=== PATIENT | female | born 1985 | race Hispanic/Latino ===

== ENCOUNTER 2020-07-07 11:59 | Emergency (ER) | payer SELFPAY ==
--- NOTE | 2020-07-07 12:05 | Event Note ---
ED Screening Note ED Screening Note: saw pcp about 10 days ago for uri given azithro cough persistent covid neg no fever or chills no sob no cp smoker no hx asthma non ill appearing This initial assessment/diagnostic orders/clinical plan/treatment(s) is/are subject to change based on patients health status, clinical progression and re-assessment by fellow clinical providers in the ED. Further treatment and workup at subsequent clinical providers discretion. Patient/guardian urged not to elope from the ED as their condition may be serious if not clinically assessed and managed. Initial orders include: xr ro pna
[2020-07-07 12:08] VITALS: BP 149/103
--- NOTE | 2020-07-07 12:29 | Emergency Department Report ---
Minor Respiratory - HPI Chief Complaint: Upper Respiratory Infection Stated Complaint: CONGESTION Time Seen by Provider: 07/07/20 12:03 Pain Location: Facial, Throat, Chest Severity: mild Minor Respiratory: Yes Sore Throat, Yes Able to Tolerate Fluids, Yes Cough, No Rhinorrhea, No Ear Pain, No Sick Contacts, No Hemoptysis, No Chest Pain, No Shortness of Breath, No Fever Other History: 35 yo comes to er with cough, sinus pain and sore throat. No exudate. No fever or chills. Pt denes chest pain or sob. Denies known exposure to covid. Pt denies hx htn. She has seen her PCP for the same over the past few weeks but it is not getting better p tenzin dent. She was given no steroids at the time. Pt continues to smoke daily - she has been educated on cessation. Ambulatory and non ill appearing on exam. ED Review of Systems ROS: Stated complaint: CONGESTION Other details as noted in HPI Comment: All other systems reviewed and negative ED Past Medical Hx - Past Medical History Previous Medical History?: No - Surgical History Past Surgical History?: No - Family History Family history: no significant - Social History Smoking Status: Current Every Day Smoker Substance Use Type: None - Medications Home Medications: Home Medications Medication Instructions Recorded Confirmed Last Taken Type Benzonatate [Tessalon Perles] 100 mg PO Q12H PRN #20 capsule 07/07/20 Unknown Rx Cetirizine HCl [ZyrTEC] 10 mg PO DAILY #30 capsule 07/07/20 Unknown Rx Doxycycline Monohydrate 100 mg PO BID #20 capsule 07/07/20 Unknown Rx [Doxycycline Monohydrate CAP] Fluticasone [Flonase] 1 spray NS QDAY #1 bottle 07/07/20 Unknown Rx predniSONE [Deltasone] 20 mg PO DAILY #5 tablet 07/07/20 Unknown Rx Minor Respiratory Exam - Exam General: Vital signs noted. No distress. Alert and acting appropriately. HEENT: Yes Pharyngeal Erythema, Yes Moist Mucous Membranes, Yes Frontal Tenderness, Yes Maxillary Tenderness, No Pharyngeal Exudates, No Rhinorrhea, No Conjuctival Injection Ear: Both TM Erythema, Neither TM Bulge, Neither EAC Pain, Neither EAC Discharge Neck: Yes Supple, No Adenopathy Lungs: Yes Good Air Exchange, Yes Cough, No Wheezes, No Ronchi, No Stridor, No Labored Respirations, No Retractions, No Use of Accessory Muscles, No Other Abnormal Lung Sounds Heart: Yes Regular, No Murmur Abdomen: Yes Normal Bowel Sounds, No Tenderness, No Peritoneal Signs Skin: No Rash, No Edema Neurologic: Alert and oriented, no deficits. Musculoskeletal: Unremarkable. ED Course Vital Signs 07/07/20 12:05 Temperature 98.9 F Pulse Rate 88 Respiratory 18 Rate Blood Pressure 149/103 O2 Sat by Pulse 97 Oximetry ED Medical Decision Making - Radiology Data Radiology results: report reviewed, image reviewed NAP - Medical Decision Making Vital Signs 07/07/20 12:05 Temperature 98.9 F Pulse Rate 88 Respiratory 18 Rate Blood Pressure 149/103 O2 Sat by Pulse 97 Oximetry xray noted no cp no sob bp on dc by provider-140/80. dc home with dc plan of care. Pt verbalizes understanding of activity, meds and follow up. - Differential Diagnosis RO PNA Critical care attestation.: If time is entered above; I have spent that time in minutes in the direct care of this critically ill patient, excluding procedure time. ED Disposition Clinical Impression: URI (upper respiratory infection), Sinusitis, Bronchitis, Elevated blood pressure reading Disposition: DC-01 TO HOME OR SELFCARE Is pt being admited?: No Does the pt Need Aspirin: No Condition: Stable Instructions: Upper Respiratory Infection, Adult, Chronic Bronchitis (ED) Additional Instructions: AVOID SMOKING AND CIG. SMOKE MOTRIN OR TYLENOL FOR PAIN MEDS ORDERED TODAY FOLLOW UP WITH PCP WHEN MEDS ARE COMPLETED TO BE SURE YOU ARE GETTING BETTER REFERRAL BELOW DRINK A LOT OF WATER YOUR BLOOD PRESSURE WAS MILDLY ELEVATED TODAY IN ER TAKE BP AND RECORD IT- SO YOU CAN TAKE TO YOUR PCP APPNT. WITH YOU Prescriptions: predniSONE [Deltasone] 20 mg PO DAILY #5 tablet Doxycycline Monohydrate [Doxycycline Monohydrate CAP] 100 mg PO BID #20 capsule Fluticasone [Flonase] 1 spray NS QDAY #1 bottle Benzonatate [Tessalon Perles] 100 mg PO Q12H PRN #20 capsule PRN Reason: Cough Cetirizine HCl [ZyrTEC] 10 mg PO DAILY #30 capsule Referrals: NANY VARELA MD [Staff Physician] - 3-5 Days Forms: Work/School Release Form(ED) Time of Disposition: 12:28
--- NOTE | 2020-07-07 13:16 | XRay Report ---
CHEST 2 VIEWS INDICATION / CLINICAL INFORMATION: cough. COMPARISON: None available. FINDINGS: SUPPORT DEVICES: None. HEART / MEDIASTINUM: No significant abnormality. LUNGS / PLEURA: No significant pulmonary or pleural abnormality. No pneumothorax. ADDITIONAL FINDINGS: No significant additional findings. IMPRESSION: 1. No acute findings. Signer Name: Jarocho Mcintosh MD Signed: 07/07/2020 1:12 PM Workstation Name: [id number]
== END 2020-07-07 16:38 | disposition home or self-care (01) ==
LOC: ED 11:59
DX: J32.9 Chronic sinusitis, unspecified (principal); J40 Bronchitis, not specified as acute or chronic; R03.0 Elevated blood-pressure reading, without diagnosis of hypertension; Z88.0 Allergy status to penicillin; F17.200 Nicotine dependence, unspecified, uncomplicated; Z79.899 Other long term (current) drug therapy
CPT/HCPCS: 71046; 99283